=== PATIENT | female | born 1980 | race Caucasian/White ===

== ENCOUNTER 2018-05-06 16:13 | Emergency (ER) | payer MEDICAID, OTHER ==
[~2018-05-06] VITALS: Ht 160 cm; Wt 56.0 kg
[~2018-05-06 16:13] MED LIST: ORPH100T PO; PERC10TA26 PO; Z.0.NO CURRENT MEDS; ZOFR4TAB3 SL
[2018-05-06 16:22] VITALS: BP 130/70; PULSE 125; RESP 16; TEMP 98.7; O2SAT 96
--- NOTE | 2018-05-06 16:49 | PD ---
HPI Chief Complaint: Injury Time Seen by Provider: 16:32 Travel History International Travel<30 days: No Contact w/Intl Traveler<30days: No Traveled to known affect area: No History of Present Illness HPI 37-year-old female complains of headache and right fifth toe pain. Patient struck the right foot against an object this afternoon. Patient states that the pain is sharp severe pain localized to right fourth and fifth toes. Patient denies any pain radiation. Patient states the pain is worse with weightbearing. On a scale of 1-10 the pain is a 10. Patient also has a headache for the past 2 days. Patient states that she had a seizure episode 2 days ago. Patient's states that the seizure episode started with patient staring to the side, eyes rolled back and shaking of the extremity. Patient's states that the seizure episode lasted about 10 seconds and resolved completely. Patient was snoring at the end. Patient seemed to be dazed and complains of generalized malaise and tiredness and exhausted subsequently. Patient states that headache aching headache diffuse over the head. Patient denies any visual change. Patient denies any neck pain. Patient denies any chest pain or shortness of breath. Patient denies abdominal pain. Patient denies any back pain. Patient denies a history of alcohol or drug abuse. Patient denies history of previous seizure episode. PFSH Past Medical History Diminished Hearing: No Reproductive: Yes Seizures: Yes Tetanus Vaccination: Unknown Influenza Vaccination: Yes ?: Not : 2 Para: 2 Past Surgical History Section: Yes (2) Gynecologic Surgery: Yes (HYSTERECTOMY-PARTIAL) Hysterectomy: Yes (LEFT OVARY REMAINS) Other Surgery: Yes (TUMORS/CYSTS REMOVED FROM OVARY) Social History Alcohol Use: Yes (OCCASSIONAL) Tobacco Use: No Substance Use: No Allergies-Medications (Allergen,Severity, Reaction): Coded Allergies: butorphanol (Verified Allergy, Severe, PT UNSURE, 05/06/18) Reported Meds & Prescriptions Reported Meds & Active Scripts Active Zofran ODT (Ondansetron HCl) 4 Mg Tab 4 Mg SL Q6HPRN FOR NAUSEA/VOMITING Norflex (Orphenadrine Citrate) 100 Mg Padmini 100 Mg PO BID Percocet 10/650 (Oxycodone/Acetaminophen) Tab 1 Tab PO Q4HPRN FOR PAIN Reported No Current Meds (Miscellaneous Medication) [facility] [place] Review of Systems General / Constitutional: No: Fever Eyes: No: Visual changes HENT: No: Headaches Cardiovascular: No: Chest Pain or Discomfort Respiratory: No: Shortness of Breath Gastrointestinal: No: Abdominal Pain Genitourinary: No: Dysuria Musculoskeletal: Positive: Pain Skin: No Rash Neurologic: No: Weakness Psychiatric: No: Depression Endocrine: No: Polydipsia Hematologic/Lymphatic: No: Easy Bruising Physical Exam Narrative GENERAL: Well-nourished, well-developed patient. SKIN: Focused skin assessment warm/dry. HEAD: Normocephalic. EYES: No scleral icterus. No injection or drainage. NECK: Supple, trachea midline. No JVD or lymphadenopathy. CARDIOVASCULAR: Regular rate and rhythm without murmurs, gallops, or rubs. RESPIRATORY: Breath sounds equal bilaterally. No accessory muscle use. GASTROINTESTINAL: Abdomen soft, non-tender, nondistended. MUSCULOSKELETAL: Patient has ecchymosis swelling tenderness right fifth toe. Mild tenderness on palpation right fourth toe. BACK: Nontender without obvious deformity. No CVA tenderness. Neurologic exam: Patient is awake and alert oriented 3. No obvious focal neurologic deficit. Data Data Last Documented VS Vital Signs Date Time Temp Pulse Resp B/P (MAP) Pulse Ox O2 Delivery O2 Flow Rate FiO2 05/06/18 17:11 98 16 119/75 (90) 97 Room Air 05/06/18 16:22 98.7 Orders Orders Complete Blood Count With Diff (05/06/18 16:40) Basic Metabolic Panel (Bmp) (05/06/18 16:40) Thyroid Stimulating Hormone (05/06/18 16:40) Ct Brain W/O Iv Contrast(Rout) (05/06/18 16:40) Iv Access Insert/Monitor (05/06/18 16:40) Ecg Monitoring (05/06/18 16:40) Oximetry (05/06/18 16:40) Foot, Complete (Wat5ums) (05/06/18 16:40) Tramadol (Ultram) (05/06/18 17:30) Labs Laboratory Tests Test 05/06/18 17:00 White Blood Count 6.5 TH/MM3 Red Blood Count 4.23 MIL/MM3 Hemoglobin 12.4 GM/DL Hematocrit 36.8 % Mean Corpuscular Volume 87.0 FL Mean Corpuscular Hemoglobin 29.4 PG Mean Corpuscular Hemoglobin Concent 33.8 % Red Cell Distribution Width 12.7 % Platelet Count 288 TH/MM3 Mean Platelet Volume 7.3 FL Neutrophils (%) (Auto) 82.8 % Lymphocytes (%) (Auto) 14.2 % Monocytes (%) (Auto) 2.2 % Eosinophils (%) (Auto) 0.5 % Basophils (%) (Auto) 0.3 % Neutrophils # (Auto) 5.5 TH/MM3 Lymphocytes # (Auto) 0.9 TH/MM3 Monocytes # (Auto) 0.1 TH/MM3 Eosinophils # (Auto) 0.0 TH/MM3 Basophils # (Auto) 0.0 TH/MM3 CBC Comment DIFF FINAL Differential Comment Blood Urea Nitrogen 9 MG/DL Creatinine 0.79 MG/DL Random Glucose 97 MG/DL Calcium Level 9.3 MG/DL Sodium Level 136 MEQ/L Potassium Level 4.3 MEQ/L Chloride Level 102 MEQ/L Carbon Dioxide Level 25.5 MEQ/L Anion Gap 9 MEQ/L Estimat Glomerular Filtration Rate 81 ML/MIN Thyroid Stimulating Hormone 3rd Gen 1.930 uIU/ML MDM Medical Decision Making Medical Screen Exam Complete: Yes Emergency Medical Condition: Yes Interpretation(s) Last Impressions Head CT 05/06/18 1640 Signed Impressions: CONCLUSION: 1. Negative CT Head non contrast. Foot X-Ray 05/06/18 1640 Signed Impressions: CONCLUSION: Oblique fracture of the fifth proximal phalangeal bone 1759 PM. CBC within normal limits. BMP within normal limits. TSH normal. Differential Diagnosis Differential diagnoses include contusion, fracture, dislocation, seizure, electrolyte imbalance Narrative Course 37-year-old female with right fifth toe injury. Patient also has history of a new seizure episode 2 nights ago. Ultram 50 mg p.o. given. Davian tape right fourth and fifth toes. Postop shoes. Diagnosis Primary Impression: Fracture of fifth toe, right, closed Qualified Codes: S92.501A - Displaced unspecified fracture of right lesser toe (s), initial encounter for closed fracture Additional Impression: Seizure Patient Instructions: General Instructions Additional Instructions: Take medication as directed for pain. Ice elevation. Follow-up with sand mixer machine. Follow-up with neurologist for workup for seizures. Advised patient not to drive or operate machinery or climbing heights for 6 months. Med/Other Pt SpecificInfo: Prescription(s) given Scripts Meloxicam (Mobic) 15 Mg Tab 15 MG PO DAILY for Pain, #20 TAB 0 Refills Prov: Jacob Siddiqui MD 05/06/18 Acetaminophen-Codeine (Tylenol-Codeine #3) 300-30 mg Tab 1 TAB PO Q6H Y for PAIN, #12 TAB 0 Refills Prov: Jacob Siddiqui MD 05/06/18 Disposition: 01 DISCHARGE HOME Condition: Stable Jacob Siddiqui MD May 06, 2018 16:49
--- NOTE | 2018-05-06 17:05 | RADRPT ---
EXAM DATE: 05/06/2018 4:59 PM EDT AGE/SEX: 37 years / Female INDICATIONS: Right foot pain status post hitting foot on wall today. CLINICAL DATA: This is the patient's initial encounter. Patient reports that signs and symptoms have been present for 1 day and indicates a pain score of 8/10. MEDICAL/SURGICAL HISTORY: None. None. COMPARISON: No prior [place] exams available for comparison. FINDINGS: Bony structures are in normal alignment. Nondisplaced oblique fracture involving the fifth proximal p halangeal bone Osseous density is normal. Soft tissues are unremarkable. No radiopaque foreign bodi es seen. CONCLUSION: Oblique fracture of the fifth proximal phalangeal bone Electronically signed by: Kiko Cervantes MD 05/06/2018 5:03 PM EDT
[2018-05-06 17:06] VITALS: O2SAT 98
[2018-05-06 17:11] VITALS: BP 119/75; PULSE 98; RESP 16; O2SAT 97
[2018-05-06 17:14] LABS: AUTOMATED NEUTROPHIL # 5.5 TH/MM3 (1.8-7.7); BASOPHIL % 0.3 % (0.0-2.0); EOSINOPHIL % 0.5 % (0.0-4.0); HEMATOCRIT 36.8 % (35.0-46.0); HEMOGLOBIN 12.4 GM/DL (11.6-15.3); LYMPH % 14.2 % (9.0-44.0); LYMPHOCYTE # 0.9 TH/MM3 (1.0-4.8); MEAN CORPUSCULAR HEMOGLOBIN 29.4 PG (27.0-34.0); MEAN CORPUSCULAR HGB CONC 33.8 % (32.0-36.0); MEAN PLATELET VOLUME 7.3 FL (7.0-11.0); MONO % 2.2 % (0.0-8.0); MONOCYTE # 0.1 TH/MM3 (0-0.9); NEUT % 82.8 % (16.0-70.0); PLATELET COUNT 288 TH/MM3 (150-450); RED BLOOD COUNT 4.23 MIL/MM3 (4.00-5.30); RED CELL DISTRIBUTION WIDTH 12.7 % (11.6-17.2); WHITE BLOOD COUNT 6.5 TH/MM3 (4.0-11.0)
[2018-05-06 17:22] LABS: CALCIUM 9.3 MG/DL (8.5-10.1)
[2018-05-06 17:23] LABS: BICARBONATE 25.5 MEQ/L (21.0-32.0)
[2018-05-06 17:26] LABS: CREATININE 0.79 MG/DL (0.50-1.00)
[2018-05-06] MEDS ORDERED: traMADol HCL 50 MG TAB PO ONE (17:30)
--- NOTE | 2018-05-06 17:46 | RADRPT ---
EXAM DATE: 05/06/2018 5:41 PM EDT AGE/SEX: 37 years / Female INDICATIONS: Seizure two days ago. Headache. CLINICAL DATA: This is the patient's initial encounter. Patient reports that signs and symptoms have been present for 2 days and indicates a pain score of 7/10. MEDICAL/SURGICAL HISTORY: . Seizure. section. Hysterectomy. Orthopedic surgery. RADIATION DOSE: 49.96 CTDI (mGy) COMPARISON: No prior [place] exams available for comparison. TECHNIQUE: CT of the head without contrast. Using automated exposure control and adjustment of the mA and/or kV according to patient size, radiation dose was kept as low as reasonably achievable to ob tain optimal diagnostic quality images. FINDINGS: Cerebrum: The ventricles are normal for age. No evidence of midline shift, mass lesion, hemorrhage or acute infarction. No extraaxial fluid collections are seen. Posterior Fossa: The cerebellum and brainstem are intact. The 4th ventricle is midline. The cerebe llopontine angle is unremarkable. Extracranial: The visualized portion of the orbits is intact. Skull: The calvaria is intact. No evidence of skull fracture. CONCLUSION: 1. Negative CT Head non contrast. Electronically signed by: Kiko Cervantes MD 05/06/2018 5:44 PM EDT
[2018-05-06] MEDS ORDERED: MOBI15TA PO (18:06)
[2018-05-06] MEDS ORDERED: TYLETAB34 PO (18:06)
[2018-05-06 18:25] VITALS: BP 98/68
[2018-05-06] MEDS ORDERED: LEXA5TAB PO (18:31)
[2018-05-07] MEDS ORDERED: XANA1TAB2 PO (04:36)
[2018-05-07] MEDS ORDERED: METH10SO PO (04:36)
[2018-05-07] MEDS ORDERED: NORT75CA PO (04:36)
[2018-05-07] MEDS ORDERED: LORA-474 PO (07:51)
== END 2018-05-06 18:32 | disposition home or self-care (01) ==
LOC: PHED 16:13
DX: S92.501A Displaced unspecified fracture of right lesser toe(s), initial encounter for closed fracture (principal); R56.9 Unspecified convulsions; R51 Headache; W22.8XXA Striking against or struck by other objects, initial encounter; Z79.899 Other long term (current) drug therapy; Z88.8 Allergy status to other drugs, medicaments and biological substances
CPT/HCPCS: 70450; 73630; 80048; 84443; 85025; 99285; L3260

== ENCOUNTER 2018-05-07 04:09 | Emergency (ER) | payer MEDICAID, OTHER ==
[~2018-05-07] VITALS: Ht 165.1 cm; Wt 59.1 kg
[~2018-05-07 04:09] MED LIST changes: +LEXA5TAB PO; +MOBI15TA PO; -ORPH100T PO; -PERC10TA26 PO; +TYLETAB34 PO; -Z.0.NO CURRENT MEDS; -ZOFR4TAB3 SL
[2018-05-07 04:16] VITALS: BP 132/80; PULSE 118; RESP 18; TEMP 98.5; O2SAT 99
[2018-05-07] MEDS ORDERED: XANA1TAB2 PO (04:36)
[2018-05-07] MEDS ORDERED: NORT75CA PO (04:36)
[2018-05-07] MEDS ORDERED: METH10SO PO (04:36)
[2018-05-07 04:51] LABS: AUTOMATED NEUTROPHIL # 5.2 TH/MM3 (1.8-7.7); BASOPHIL # 0.1 TH/MM3 (0-0.2); BASOPHIL % 0.7 % (0.0-2.0); EOSINOPHIL # 0.2 TH/MM3 (0-0.4); EOSINOPHIL % 2.2 % (0.0-4.0); HEMATOCRIT 34.3 % (35.0-46.0); HEMOGLOBIN 11.8 GM/DL (11.6-15.3); LYMPH % 33.6 % (9.0-44.0); MEAN CELL VOLUME 85.9 FL (80.0-100.0); MEAN CORPUSCULAR HEMOGLOBIN 29.7 PG (27.0-34.0); MEAN CORPUSCULAR HGB CONC 34.6 % (32.0-36.0); MEAN PLATELET VOLUME 7.8 FL (7.0-11.0); MONOCYTE # 0.5 TH/MM3 (0-0.9); NEUT % 57.5 % (16.0-70.0); PLATELET COUNT 262 TH/MM3 (150-450); RED BLOOD COUNT 3.99 MIL/MM3 (4.00-5.30); RED CELL DISTRIBUTION WIDTH 13.3 % (11.6-17.2)
[2018-05-07 04:55] LABS: CHLORIDE 102 MEQ/L (98-107); SODIUM (NA) 136 MEQ/L (136-145)
[2018-05-07 04:59] LABS: ALBUMIN 3.5 GM/DL (3.4-5.0); BICARBONATE 25.9 MEQ/L (21.0-32.0); BLOOD UREA NITROGEN 15 MG/DL (7-18); GLUCOSE,RANDOM 137 MG/DL (74-106)
[2018-05-07 05:02] LABS: ALT (GPT) 20 U/L (10-53); AST (GOT) 21 U/L (15-37); CREATININE 0.92 MG/DL (0.50-1.00); GLOMERULAR FILTRATION RATE 68 ML/MIN (>89)
[2018-05-07 05:04] LABS: TOTAL BILIRUBIN ADULT 0.2 MG/DL (0.2-1.0); TOTAL PROTEIN 7.3 GM/DL (6.4-8.2)
[2018-05-07 05:05] VITALS: BP 121/80; PULSE 104; RESP 18; O2SAT 99
[2018-05-07 05:05] LABS: ALKALINE PHOSPHATASE 77 U/L (45-117)
[2018-05-07 05:06] LABS: BILIRUBIN, URINE NEG (NEG); BLOOD, URINE NEG (NEG); GLUCOSE,URINE NEG (NEG); KETONE, URINE NEG (NEG); NITRITE,URINE NEG (NEG); URINE COLOR YELLOW (YELLW/STRAW); URINE LEUKOCYTE ESTERASE NEG (NEG)
[2018-05-07 05:10] LABS: RBC, URINE 0-2 /hpf (0-3); SQUAMOUS EPITHELIAL CELL URINE 0-5 /hpf (0-5); WBC, URINE 0-2 /hpf (0-5)
[2018-05-07] MEDS ORDERED: LORazepam 2 MG/ML VIAL IV PUSH ONE (05:15)
--- NOTE | 2018-05-07 05:18 | PD ---
HPI Chief Complaint: Seizure Time Seen by Provider: 04:13 Travel History International Travel<30 days: No Contact w/Intl Traveler<30days: No Traveled to known affect area: No History of Present Illness HPI 37-year-old female presents the ER for evaluation of seizures. Patient had seizures 2 days ago and she came today for a broken toe and had a CAT scan of the head that was negative, patient then went home and she had 2 episodes of seizures at home and called the paramedics. Patient has no history of seizures in the past, she used to take Xanax 2 mg 3 times a day for her anxiety ! Then was lowered down to 1 mg once daily and then she did not take any Xanax for the last 3 days because she ran out of it. Patient has no neurological symptoms right now, no motor or sensory or speech deficits. Paramedics say that when they arrived at the patient was postictal got better as she arrived to the ER. PFSH Past Medical History Diminished Hearing: No Reproductive: Yes Seizures: Yes Influenza Vaccination: Yes ?: Not : 2 Para: 2 Past Surgical History Section: Yes (2) Gynecologic Surgery: Yes (HYSTERECTOMY-PARTIAL) Hysterectomy: Yes (LEFT OVARY REMAINS) Other Surgery: Yes (TUMORS/CYSTS REMOVED FROM OVARY) Social History Alcohol Use: Yes (OCCASSIONAL) Tobacco Use: No Substance Use: No Allergies-Medications (Allergen,Severity, Reaction): Coded Allergies: butorphanol (Verified Allergy, Severe, PT UNSURE, 05/06/18) Reported Meds & Prescriptions Reported Meds & Active Scripts Active Ativan (Lorazepam) 1 Mg Tab 1 Mg PO BID PRN Mobic (Meloxicam) 15 Mg Tab 15 Mg PO DAILY Tylenol-Codeine #3 (Acetaminophen-Codeine) 300-30 mg Tab 1 Tab PO Q6H PRN Reported Methadone Liq (Methadone HCl) 2 Mg/Ml Liqd 100 Mg PO DAILY Nortriptyline (Nortriptyline HCl) 75 Mg Cap 150 Mg PO HS Xanax (Alprazolam) 1 Mg Tab 1 Mg PO DAILY PRN Lexapro (Escitalopram Oxalate) 5 Mg Tab 5 Mg PO DAILY Review of Systems Except as stated in HPI: all other systems reviewed are Neg Physical Exam Narrative GENERAL: Alert oriented 3 no acute distress SKIN: Focused skin assessment warm/dry. HEAD: Atraumatic. Normocephalic. EYES: Pupils equal and round. No scleral icterus. No injection or drainage. ENT: No nasal bleeding or discharge. Mucous membranes pink and moist. NECK: Trachea midline. No JVD. CARDIOVASCULAR: Regular rate and rhythm. No murmur appreciated. RESPIRATORY: No accessory muscle use. Clear to auscultation. Breath sounds equal bilaterally. GASTROINTESTINAL: Abdomen soft, non-tender, nondistended. Hepatic and splenic margins not palpable. MUSCULOSKELETAL: No obvious deformities. No clubbing. No cyanosis. No edema. NEUROLOGICAL: Awake and alert. No obvious cranial nerve deficits. Motor grossly within normal limits. Normal speech. PSYCHIATRIC: Appropriate mood and affect; insight and judgment normal. Data Data Last Documented VS Vital Signs Date Time Temp Pulse Resp B/P (MAP) Pulse Ox O2 Delivery O2 Flow Rate FiO2 05/07/18 08:10 109 16 118/69 (85) 98 05/07/18 06:55 98.5 05/07/18 06:05 Room Air Orders Orders Complete Blood Count With Diff (05/07/18 04:30) Comprehensive Metabolic Panel (05/07/18 04:30) Thyroid Stimulating Hormone (05/07/18 04:30) Urinalysis - C+S If Indicated (05/07/18 04:30) Mri Brain W/O Contrast (05/07/18 ) Mra Brain W/O Contrast (Cow) (05/07/18 ) Lorazepam Inj (Ativan Inj) (05/07/18 05:15) Ed Discharge Order (05/07/18 08:06) Labs Laboratory Tests Test 05/07/18 04:30 05/07/18 04:55 White Blood Count 9.0 TH/MM3 Red Blood Count 3.99 MIL/MM3 Hemoglobin 11.8 GM/DL Hematocrit 34.3 % Mean Corpuscular Volume 85.9 FL Mean Corpuscular Hemoglobin 29.7 PG Mean Corpuscular Hemoglobin Concent 34.6 % Red Cell Distribution Width 13.3 % Platelet Count 262 TH/MM3 Mean Platelet Volume 7.8 FL Neutrophils (%) (Auto) 57.5 % Lymphocytes (%) (Auto) 33.6 % Monocytes (%) (Auto) 6.0 % Eosinophils (%) (Auto) 2.2 % Basophils (%) (Auto) 0.7 % Neutrophils # (Auto) 5.2 TH/MM3 Lymphocytes # (Auto) 3.0 TH/MM3 Monocytes # (Auto) 0.5 TH/MM3 Eosinophils # (Auto) 0.2 TH/MM3 Basophils # (Auto) 0.1 TH/MM3 CBC Comment DIFF FINAL Differential Comment Blood Urea Nitrogen 15 MG/DL Creatinine 0.92 MG/DL Random Glucose 137 MG/DL Total Protein 7.3 GM/DL Albumin 3.5 GM/DL Calcium Level 9.0 MG/DL Alkaline Phosphatase 77 U/L Aspartate Amino Transf (AST/SGOT) 21 U/L Alanine Aminotransferase (ALT/SGPT) 20 U/L Total Bilirubin 0.2 MG/DL Sodium Level 136 MEQ/L Potassium Level 3.6 MEQ/L Chloride Level 102 MEQ/L Carbon Dioxide Level 25.9 MEQ/L Anion Gap 8 MEQ/L Estimat Glomerular Filtration Rate 68 ML/MIN Thyroid Stimulating Hormone 3rd Gen 6.020 uIU/ML Urine Color YELLOW Urine Turbidity CLEAR Urine pH 7.0 Urine Specific [place] 1.010 Urine Protein NEG mg/dL Urine Glucose (UA) NEG mg/dL Urine Ketones NEG mg/dL Urine Occult Blood NEG Urine Nitrite NEG Urine Bilirubin NEG Urine Urobilinogen 0.2 MG/DL Urine Leukocyte Esterase NEG Urine RBC 0-2 /hpf Urine WBC 0-2 /hpf Urine Squamous Epithelial Cells 0-5 /hpf Urine Bacteria NONE /hpf Microscopic Urinalysis Comment CULT NOT INDICATED MDM Medical Decision Making Medical Screen Exam Complete: Yes Emergency Medical Condition: Yes Differential Diagnosis Aneurysm, malignancy, benzo withdrawal seizures, subarachnoid hemorrhage. Narrative Course 37-year-old female presented here for evaluation of seizures. Patient takes Xanax at home but she abruptly stopped 3 days ago, CAT scan is negative, MRI is pending and will be signed out to dr. Sheth next shift pending disposition. Diagnosis Primary Impression: Seizure Scripts Lorazepam (Ativan) 1 Mg Tab 1 MG PO BID Y for ANXIETY AND/OR AGITATION, #15 TAB 0 Refills Prov: Ethan Sheth MD 05/07/18 Marbin Tipton MD May 07, 2018 05:18
[2018-05-07 05:35] VITALS: BP 120/75; PULSE 102; RESP 18; O2SAT 98
[2018-05-07 06:05] VITALS: BP 115/73; PULSE 97; RESP 18; O2SAT 96
[2018-05-07 06:55] VITALS: BP 140/91; PULSE 114; RESP 16; TEMP 98.5; O2SAT 99
--- NOTE | 2018-05-07 07:29 | RADRPT ---
EXAM DATE: 05/07/2018 6:56 AM EDT AGE/SEX: 37 years / Female INDICATIONS: Seizures. CLINICAL DATA: This is the patient's initial encounter. Patient reports that signs and symptoms have been present for 1 day and indicates a pain score of 0/10. MEDICAL/SURGICAL HISTORY: None. Rotator cuff, right. Hysterectomy. COMPARISON: [facility], CT BRAIN W/O CONTRAST, 05/06/2018. . TECHNIQUE: Multiplanar, multisequence examination of the brain was performed without contrast. FINDINGS: Cerebrum: The ventricles are normal for age. No evidence of midline shift, mass lesion, hemorrhage or acute infarction. No extraaxial fluid collections are seen. The pituitary gland and suprasellar cistern are normal in configuration. White Matter: No significant signal abnormalities are seen in the white matter. Posterior Fossa: The cerebellum and brainstem are intact. The 4th ventricle is midline. The cerebel lopontine angle is unremarkable. The cerebellar tonsils are normal in position. Diffusion Imaging: No focal areas of restricted diffusion are seen. No evidence of acute infarction . Extracranial: The visualized portions of the orbits and paranasal sinuses are unremarkable. CONCLUSION: 1. Normal noncontrast MRI of the brain. Electronically signed by: Roby Apodaca MD 05/07/2018 7:28 AM EDT
--- NOTE | 2018-05-07 07:31 | RADRPT ---
EXAM DATE: 05/07/2018 6:56 AM EDT AGE/SEX: 37 years / Female INDICATIONS: Seizures. CLINICAL DATA: This is the patient's initial encounter. Patient reports that signs and symptoms have been present for 1 day and indicates a pain score of 0/10. MEDICAL/SURGICAL HISTORY: None. Hysterectomy. Right rotator cuff. COMPARISON: No prior [place] exams available for comparison. TECHNIQUE: 3D [id number] MRA was performed. Source images, multiplanar STS MIP, and 3D volum e MIP reconstructions were reviewed. FINDINGS: There is excellent visualization of the major intracranial arteries out to the second-order branch ve ssels. There is no evidence for aneurysm, vessel truncation or stenosis, and no evidence for vascula r malformation. CONCLUSION: 1. Normal MRA of the brain. Electronically signed by: Roby Apodaca MD 05/07/2018 7:29 AM EDT
[2018-05-07] MEDS ORDERED: LORA-474 PO (07:51)
--- NOTE | 2018-05-07 07:52 | PD ---
Physical Exam Date Seen by Provider: May 07, 2018 Time Seen by Provider: 07:47 Narrative This 37-year-old female was brought for evaluation after she had 2 seizures at home. She had one seizure several years ago. She had a seizure about 4 days ago. She was seen in the ER yesterday and had a CT scan done which was normal. Last night she had 2 seizures and was brought back. She has been on Xanax for [place] phobia. She had run out of her medication and has not had any for about 3 days. She has been somewhat nervous since then. She has been seen initially by Dr. Perales who ordered MRI and MRA. These have been done and have been read as negative. My evaluation the patient is awake and alert. She is somewhat tremulous and nervous. I believe this is a benzodiazepine withdrawal seizure. She expects to be back on her Xanax in a week. I will prescribe Ativan 1 mg twice daily for her to take until she resumes her Xanax Data Data Last Documented VS Vital Signs Date Time Temp Pulse Resp B/P (MAP) Pulse Ox O2 Delivery O2 Flow Rate FiO2 05/07/18 06:55 98.5 114 16 140/91 (107) 99 05/07/18 06:05 Room Air Orders Orders Complete Blood Count With Diff (05/07/18 04:30) Comprehensive Metabolic Panel (05/07/18 04:30) Thyroid Stimulating Hormone (05/07/18 04:30) Urinalysis - C+S If Indicated (05/07/18 04:30) Mri Brain W/O Contrast (05/07/18 ) Mra Brain W/O Contrast (Cow) (05/07/18 ) Lorazepam Inj (Ativan Inj) (05/07/18 05:15) Labs Laboratory Tests Test 05/07/18 04:30 05/07/18 04:55 White Blood Count 9.0 TH/MM3 Red Blood Count 3.99 MIL/MM3 Hemoglobin 11.8 GM/DL Hematocrit 34.3 % Mean Corpuscular Volume 85.9 FL Mean Corpuscular Hemoglobin 29.7 PG Mean Corpuscular Hemoglobin Concent 34.6 % Red Cell Distribution Width 13.3 % Platelet Count 262 TH/MM3 Mean Platelet Volume 7.8 FL Neutrophils (%) (Auto) 57.5 % Lymphocytes (%) (Auto) 33.6 % Monocytes (%) (Auto) 6.0 % Eosinophils (%) (Auto) 2.2 % Basophils (%) (Auto) 0.7 % Neutrophils # (Auto) 5.2 TH/MM3 Lymphocytes # (Auto) 3.0 TH/MM3 Monocytes # (Auto) 0.5 TH/MM3 Eosinophils # (Auto) 0.2 TH/MM3 Basophils # (Auto) 0.1 TH/MM3 CBC Comment DIFF FINAL Differential Comment Blood Urea Nitrogen 15 MG/DL Creatinine 0.92 MG/DL Random Glucose 137 MG/DL Total Protein 7.3 GM/DL Albumin 3.5 GM/DL Calcium Level 9.0 MG/DL Alkaline Phosphatase 77 U/L Aspartate Amino Transf (AST/SGOT) 21 U/L Alanine Aminotransferase (ALT/SGPT) 20 U/L Total Bilirubin 0.2 MG/DL Sodium Level 136 MEQ/L Potassium Level 3.6 MEQ/L Chloride Level 102 MEQ/L Carbon Dioxide Level 25.9 MEQ/L Anion Gap 8 MEQ/L Estimat Glomerular Filtration Rate 68 ML/MIN Thyroid Stimulating Hormone 3rd Gen 6.020 uIU/ML Urine Color YELLOW Urine Turbidity CLEAR Urine pH 7.0 Urine Specific [place] 1.010 Urine Protein NEG mg/dL Urine Glucose (UA) NEG mg/dL Urine Ketones NEG mg/dL Urine Occult Blood NEG Urine Nitrite NEG Urine Bilirubin NEG Urine Urobilinogen 0.2 MG/DL Urine Leukocyte Esterase NEG Urine RBC 0-2 /hpf Urine WBC 0-2 /hpf Urine Squamous Epithelial Cells 0-5 /hpf Urine Bacteria NONE /hpf Microscopic Urinalysis Comment CULT NOT INDICATED MDM Medical Record Reviewed: Yes Supervised Visit with YONATHAN: Yes Differential Diagnosis Differential includes seizure, space-occupying lesion, Narrative Course MRI and MRA are negative. Patient gives a history of stopping Xanax abruptly 3 days ago. 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
[2018-05-07 08:10] VITALS: BP 118/69
== END 2018-05-07 08:15 | disposition home or self-care (01) ==
LOC: PHED 04:09
DX: R56.9 Unspecified convulsions (principal); F13.239 Sedative, hypnotic or anxiolytic dependence with withdrawal, unspecified; F41.9 Anxiety disorder, unspecified
CPT/HCPCS: 70544; 70551; 80053; 81001; 84443; 85025; 96374; 99285; J2060

== ENCOUNTER 2018-05-11 03:17 | Emergency (ER) | payer MEDICAID ==
[~2018-05-11] VITALS: Ht 160 cm; Wt 68.2 kg
[~2018-05-11 03:17] MED LIST changes: +LORA-474 PO; +METH10SO PO; +NORT75CA PO; +XANA1TAB2 PO
[2018-05-11 03:28] VITALS: BP 129/71; PULSE 122; RESP 22; TEMP 98; O2SAT 98
--- NOTE | 2018-05-11 03:51 | PD ---
HPI Chief Complaint: Altered Mental Status Time Seen by Provider: 03:40 Travel History International Travel<30 days: No Contact w/Intl Traveler<30days: No Traveled to known affect area: No History of Present Illness HPI Patient is a 37-year-old female who presents the emergency room for evaluation of seizures. Patient reports that she has had multiple seizures today. Patient reports that she has been taking Xanax as she was prescribed this after her ER visit on May 07, 2018 when she was found to have seizures due to benzo withdrawal. Reports that she was on Xanax at home and stopped abruptly and began to have seizures. Patient was prescribed Ativan 1 mg twice daily for seizures, she was given 15 tabs and finished these medications in a few days. Patient reports that she just started recently, reports no seizures in the past. Patient reports that she only take Xanax for her seizures. Patient denies any headache or dizziness, denies any chest pain or shortness of breath. Patient denies any drug abuse. PFSH Past Medical History Medical History: Unable to Obtain Diminished Hearing: No Reproductive: Yes Seizures: Yes Tetanus Vaccination: Unknown Influenza Vaccination: Yes ?: Not : 2 Para: 2 Past Surgical History Surgical History: Unable to Obtain Section: Yes (2) Gynecologic Surgery: Yes (HYSTERECTOMY-PARTIAL) Hysterectomy: Yes Other Surgery: Yes (TUMORS/CYSTS REMOVED FROM OVARY) Social History Alcohol Use: Yes (OCCASSIONAL) Tobacco Use: No Substance Use: No Allergies-Medications (Allergen,Severity, Reaction): Coded Allergies: butorphanol (Verified Allergy, Severe, PT UNSURE, 05/06/18) Reported Meds & Prescriptions Reported Meds & Active Scripts Active Ativan (Lorazepam) 1 Mg Tab 1 Mg PO BID PRN Mobic (Meloxicam) 15 Mg Tab 15 Mg PO DAILY Tylenol-Codeine #3 (Acetaminophen-Codeine) 300-30 mg Tab 1 Tab PO Q6H PRN Reported Methadone Liq (Methadone HCl) 2 Mg/Ml Liqd 100 Mg PO DAILY Nortriptyline (Nortriptyline HCl) 75 Mg Cap 150 Mg PO HS Xanax (Alprazolam) 1 Mg Tab 1 Mg PO DAILY PRN Lexapro (Escitalopram Oxalate) 5 Mg Tab 5 Mg PO DAILY Review of Systems General / Constitutional: No: Fever Eyes: No: Visual changes HENT: No: Headaches Cardiovascular: No: Chest Pain or Discomfort Respiratory: No: Shortness of Breath Gastrointestinal: No: Abdominal Pain Genitourinary: No: Dysuria Musculoskeletal: No: Pain Skin: No Rash Neurologic: Positive: Seizures, No: Weakness Psychiatric: No: Depression Endocrine: No: Polydipsia Hematologic/Lymphatic: No: Easy Bruising Physical Exam Narrative GENERAL: No acute distress, nontoxic SKIN: Focused skin assessment warm/dry. HEAD: Atraumatic. Normocephalic. EYES: Pupils equal and round. No scleral icterus. No injection or drainage. ENT: No nasal bleeding or discharge. Mucous membranes pink and moist. NECK: Trachea midline. No JVD. CARDIOVASCULAR: Regular rate and rhythm. No murmur appreciated. RESPIRATORY: No accessory muscle use. Clear to auscultation. Breath sounds equal bilaterally. GASTROINTESTINAL: Abdomen soft, non-tender, nondistended. Hepatic and splenic margins not palpable. MUSCULOSKELETAL: No obvious deformities. No clubbing. No cyanosis. No edema. NEUROLOGICAL: Awake and alert. No obvious cranial nerve deficits. Motor grossly within normal limits. Normal speech. CN 2- 12 grossly intact with no neurological deficits PSYCHIATRIC: Anxious mood and affect; insight and judgment normal. Data Data Last Documented VS Vital Signs Date Time Temp Pulse Resp B/P (MAP) Pulse Ox O2 Delivery O2 Flow Rate FiO2 05/11/18 03:28 98.0 122 22 129/71 (90) 98 Orders Orders Complete Blood Count With Diff (05/11/18 03:47) Drug Screen, Random Urine (05/11/18 03:47) Electrocardiogram (05/11/18 ) Ct Brain W/O Iv Contrast(Rout) (05/11/18 ) Blood Glucose (05/11/18 03:47) Ecg Monitoring (05/11/18 03:47) Iv Access Insert/Monitor (05/11/18 03:47) Oximetry (05/11/18 03:47) Comprehensive Metabolic Panel (05/11/18 03:47) Sodium Chloride 0.9% Flush (Ns Flush) (05/11/18 04:00) Urinalysis - C+S If Indicated (05/11/18 03:47) Lactic Acid (05/11/18 03:47) Ed Urine Pregnancytest Poc (05/11/18 03:47) Lorazepam Inj (Ativan Inj) (05/11/18 04:00) Sodium Chlor 0.9% 1000 Ml Inj (Ns 1000 M (05/11/18 04:00) Labs Laboratory Tests Test 05/11/18 03:52 White Blood Count 8.5 TH/MM3 Red Blood Count 3.89 MIL/MM3 Hemoglobin 11.2 GM/DL Hematocrit 33.8 % Mean Corpuscular Volume 86.9 FL Mean Corpuscular Hemoglobin 28.8 PG Mean Corpuscular Hemoglobin Concent 33.2 % Red Cell Distribution Width 13.5 % Platelet Count 244 TH/MM3 Mean Platelet Volume 7.4 FL Neutrophils (%) (Auto) 72.4 % Lymphocytes (%) (Auto) 20.4 % Monocytes (%) (Auto) 4.6 % Eosinophils (%) (Auto) 2.3 % Basophils (%) (Auto) 0.3 % Neutrophils # (Auto) 6.1 TH/MM3 Lymphocytes # (Auto) 1.7 TH/MM3 Monocytes # (Auto) 0.4 TH/MM3 Eosinophils # (Auto) 0.2 TH/MM3 Basophils # (Auto) 0.0 TH/MM3 CBC Comment DIFF FINAL Differential Comment Urine Color YELLOW Urine Turbidity CLEAR Urine pH 6.0 Urine Specific [place] 1.016 Urine Protein NEG mg/dL Urine Glucose (UA) NEG mg/dL Urine Ketones NEG mg/dL Urine Occult Blood NEG Urine Nitrite NEG Urine Bilirubin NEG Urine Urobilinogen LESS THAN 2.0 MG/DL Urine Leukocyte Esterase NEG Urine WBC LESS THAN 1 /hpf Urine Squamous Epithelial Cells 2 /hpf Urine Bacteria RARE /hpf Urine Mucus FEW /lpf Microscopic Urinalysis Comment CULT NOT INDICATED Blood Urea Nitrogen 27 MG/DL Creatinine 1.20 MG/DL Random Glucose 101 MG/DL Total Protein 7.1 GM/DL Albumin 3.4 GM/DL Calcium Level 8.6 MG/DL Alkaline Phosphatase 71 U/L Aspartate Amino Transf (AST/SGOT) 26 U/L Alanine Aminotransferase (ALT/SGPT) 20 U/L Total Bilirubin 0.2 MG/DL Sodium Level 138 MEQ/L Potassium Level 3.9 MEQ/L Chloride Level 106 MEQ/L Carbon Dioxide Level 21.6 MEQ/L Anion Gap 10 MEQ/L Estimat Glomerular Filtration Rate 50 ML/MIN Lactic Acid Level 1.1 mmol/L Urine Opiates Screen POS Urine Barbiturates Screen NEG Urine Amphetamines Screen NEG Urine Benzodiazepines Screen NEG Urine Cocaine Screen NEG Urine Cannabinoids Screen NEG MDM Medical Decision Making Medical Screen Exam Complete: Yes Emergency Medical Condition: Yes Medical Record Reviewed: Yes Interpretation(s) Vital Signs Date Time Temp Pulse Resp B/P (MAP) Pulse Ox O2 Delivery O2 Flow Rate FiO2 05/11/18 03:28 98.0 122 22 129/71 (90) 98 Differential Diagnosis Benzo withdrawal seizures, intracranial hemorrhage, drug abuse, electrolyte abnormality Narrative Course During the course of the patients emergency department visit, the patients history, examination, and differential diagnosis were reviewed with the patient. The patient was placed on a equipment monitor phototypesetting with oximetry and frequent blood pressure monitoring. The patient had an IV access obtained and blood work sent for analysis. The patient was initially provided IVF as well as a dose of IV ativan The patients laboratory studies were reviewed and remarkable for Laboratory Tests Test 05/11/18 03:52 White Blood Count 8.5 TH/MM3 (4.0-11.0) Red Blood Count 3.89 MIL/MM3 (4.00-5.30) Hemoglobin 11.2 GM/DL (11.6-15.3) Hematocrit 33.8 % (35.0-46.0) Mean Corpuscular Volume 86.9 FL (80.0-100.0) Mean Corpuscular Hemoglobin 28.8 PG (27.0-34.0) Mean Corpuscular Hemoglobin Concent 33.2 % (32.0-36.0) Red Cell Distribution Width 13.5 % (11.6-17.2) Platelet Count 244 TH/MM3 (150-450) Mean Platelet Volume 7.4 FL (7.0-11.0) Neutrophils (%) (Auto) 72.4 % (16.0-70.0) Lymphocytes (%) (Auto) 20.4 % (9.0-44.0) Monocytes (%) (Auto) 4.6 % (0.0-8.0) Eosinophils (%) (Auto) 2.3 % (0.0-4.0) Basophils (%) (Auto) 0.3 % (0.0-2.0) Neutrophils # (Auto) 6.1 TH/MM3 (1.8-7.7) Lymphocytes # (Auto) 1.7 TH/MM3 (1.0-4.8) Monocytes # (Auto) 0.4 TH/MM3 (0-0.9) Eosinophils # (Auto) 0.2 TH/MM3 (0-0.4) Basophils # (Auto) 0.0 TH/MM3 (0-0.2) CBC Comment DIFF FINAL Differential Comment Urine Color YELLOW (YELLW/STRAW) Urine Turbidity CLEAR (CLEAR) Urine pH 6.0 (5.0-8.5) Urine Specific [place] 1.016 (1.002-1.035) Urine Protein NEG mg/dL (NEG-TRACE) Urine Glucose (UA) NEG mg/dL (NEG) Urine Ketones NEG mg/dL (NEG) Urine Occult Blood NEG (NEG) Urine Nitrite NEG (NEG) Urine Bilirubin NEG (NEG) Urine Urobilinogen LESS THAN 2.0 MG/DL (LESS Urine Leukocyte Esterase NEG (NEG) Urine WBC LESS THAN 1 /hpf (0-5) Urine Squamous Epithelial Cells 2 /hpf (0-5) Urine Bacteria RARE /hpf (NONE) Urine Mucus FEW /lpf (OCC) Microscopic Urinalysis Comment CULT NOT INDICATED Blood Urea Nitrogen 27 MG/DL (7-18) Creatinine 1.20 MG/DL (0.50-1.00) Random Glucose 101 MG/DL (74-106) Total Protein 7.1 GM/DL (6.4-8.2) Albumin 3.4 GM/DL (3.4-5.0) Calcium Level 8.6 MG/DL (8.5-10.1) Alkaline Phosphatase 71 U/L (45-117) Aspartate Amino Transf (AST/SGOT) 26 U/L (15-37) Alanine Aminotransferase (ALT/SGPT) 20 U/L (10-53) Total Bilirubin 0.2 MG/DL (0.2-1.0) Sodium Level 138 MEQ/L (136-145) Potassium Level 3.9 MEQ/L (3.5-5.1) Chloride Level 106 MEQ/L (98-107) Carbon Dioxide Level 21.6 MEQ/L (21.0-32.0) Anion Gap 10 MEQ/L (5-15) Estimat Glomerular Filtration Rate 50 ML/MIN (>89) Lactic Acid Level 1.1 mmol/L (0.4-2.0) Urine Opiates Screen POS (NEG) Urine Barbiturates Screen NEG (NEG) Urine Amphetamines Screen NEG (NEG) Urine Benzodiazepines Screen NEG (NEG) Urine Cocaine Screen NEG (NEG) Urine Cannabinoids Screen NEG (NEG) Radiology studies were reviewed and remarkable for Last Impressions Head CT 05/11/18 0000 Signed Impressions: CONCLUSION: 1. Negative CT Head non contrast. Patient feeling better in the ER. Patient with most likely benzo withdrawl seizures. Discussed need for her to follow up with neurologist. She will return to ER as needed Diagnosis Primary Impression: Seizure Referrals: [place] Jaime MD PhD Patient Instructions: General Instructions Additional Instructions: Please provide patient with a copy of their lab work and studies at discharge* * Please follow up with your primary care doctor in 2-3 days Return to the ER if symptoms worsen or progress Return to the ER as needed Please follow up with a neurologist as soon as possible Med/Other Pt SpecificInfo: Prescription(s) given Scripts Alprazolam (Xanax) 0.5 Mg Tab 0.5 MG PO Q6H Y for ANXIETY, #6 TAB 0 Refills Prov: Carolyne Duff DO 05/11/18 Disposition: 01 DISCHARGE HOME Condition: Stable Carolyne Duff DO May 11, 2018 03:51
[2018-05-11] MEDS ORDERED: LORazepam 2 MG/ML VIAL IV PUSH ONE (04:00)
[2018-05-11] MEDS ORDERED: SODIUM CHLOR 0.9% 1000 ML INJ 1,000 ML IV ONE (04:00)
[2018-05-11] MEDS ORDERED: SODIUM CHLORIDE 0.9% FLUSH 10 ML FLUSH IVF PRN (04:00)
[2018-05-11 04:24] LABS: AUTOMATED NEUTROPHIL # 6.1 TH/MM3 (1.8-7.7); BASOPHIL % 0.3 % (0.0-2.0); EOSINOPHIL # 0.2 TH/MM3 (0-0.4); EOSINOPHIL % 2.3 % (0.0-4.0); HEMATOCRIT 33.8 % (35.0-46.0); HEMOGLOBIN 11.2 GM/DL (11.6-15.3); LYMPH % 20.4 % (9.0-44.0); LYMPHOCYTE # 1.7 TH/MM3 (1.0-4.8); MEAN CELL VOLUME 86.9 FL (80.0-100.0); MEAN CORPUSCULAR HEMOGLOBIN 28.8 PG (27.0-34.0); MEAN CORPUSCULAR HGB CONC 33.2 % (32.0-36.0); MEAN PLATELET VOLUME 7.4 FL (7.0-11.0); MONO % 4.6 % (0.0-8.0); MONOCYTE # 0.4 TH/MM3 (0-0.9); NEUT % 72.4 % (16.0-70.0); PLATELET COUNT 244 TH/MM3 (150-450); RED BLOOD COUNT 3.89 MIL/MM3 (4.00-5.30); RED CELL DISTRIBUTION WIDTH 13.5 % (11.6-17.2); WHITE BLOOD COUNT 8.5 TH/MM3 (4.0-11.0)
[2018-05-11 04:25] LABS: BACTERIA, URINE RARE /hpf; BILIRUBIN, URINE NEG (NEG); BLOOD, URINE NEG (NEG); GLUCOSE,URINE NEG (NEG); KETONE, URINE NEG (NEG); MUCUS URINE FEW /lpf (OCC); NITRITE,URINE NEG (NEG); SQUAMOUS EPITHELIAL CELL URINE 2 /hpf (0-5); URINE COLOR YELLOW (YELLW/STRAW); URINE LEUKOCYTE ESTERASE NEG (NEG)
--- NOTE | 2018-05-11 04:31 | RADRPT ---
EXAM DATE: 05/11/2018 4:26 AM EDT AGE/SEX: 37 years / Female INDICATIONS: Seizure. Altered mental status. CLINICAL DATA: This is the patient's initial encounter. Patient reports that signs and symptoms have been present for 1 day and indicates a pain score of 0/10. MEDICAL/SURGICAL HISTORY: . Seizures section. Partial hysterectomy RADIATION DOSE: 56.35 CTDI (mGy) COMPARISON: [facility], CT BRAIN W/O CONTRAST, 05/06/2018. . TECHNIQUE: CT of the head without contrast. Using automated exposure control and adjustment of the mA and/or kV according to patient size, radiation dose was kept as low as reasonably achievable to ob tain optimal diagnostic quality images. FINDINGS: Cerebrum: The ventricles are normal for age. No evidence of midline shift, mass lesion, hemorrhage or acute infarction. No extraaxial fluid collections are seen. Posterior Fossa: The cerebellum and brainstem are intact. The 4th ventricle is midline. The cerebe llopontine angle is unremarkable. Extracranial: The visualized portion of the orbits is intact. Skull: The calvaria is intact. No evidence of skull fracture. CONCLUSION: 1. Negative CT Head non contrast. Electronically signed by: Kiko Cervantes MD 05/11/2018 4:29 AM EDT
[2018-05-11 04:44] LABS: ALBUMIN 3.4 GM/DL (3.4-5.0); ALT (GPT) 20 U/L (10-53); AST (GOT) 26 U/L (15-37); BICARBONATE 21.6 MEQ/L (21.0-32.0); BLOOD UREA NITROGEN 27 MG/DL (7-18); CALCIUM 8.6 MG/DL (8.5-10.1); CHLORIDE 106 MEQ/L (98-107); GLOMERULAR FILTRATION RATE 50 ML/MIN (>89); GLUCOSE,RANDOM 101 MG/DL (74-106); SODIUM (NA) 138 MEQ/L (136-145)
[2018-05-11 04:46] LABS: ALKALINE PHOSPHATASE 71 U/L (45-117); TOTAL BILIRUBIN ADULT 0.2 MG/DL (0.2-1.0); TOTAL PROTEIN 7.1 GM/DL (6.4-8.2)
[2018-05-11] MEDS ORDERED: ALPR.5 PO (05:06)
--- NOTE | 2018-05-11 14:31 | EKG ---
Date Performed: 05/11/2018 Time Performed: 03:16:22 PTAGE: 37 years EKG: SINUS TACHYCARDIA INTRAVENTRICULAR CONDUCTION DELAY POSSIBLE RIGHT VENTRICULAR HYPERTROPHY ABNORMAL ECG NO PREVIOUS TRACING DOCTOR: Reece Howard Interpretating Date/Time 05/11/2018 14:29:49
== END 2018-05-11 05:20 | disposition home or self-care (01) ==
LOC: NEPE 03:17
DX: R56.9 Unspecified convulsions (principal); F11.90 Opioid use, unspecified, uncomplicated; R94.31 Abnormal electrocardiogram [ECG] [EKG]; Z90.710 Acquired absence of both cervix and uterus
CPT/HCPCS: 70450; 80053; 80307; 81001; 83605; 84703; 85025; 93005; 96361; 96374; 99285; J2060; J7030